=== PATIENT | male | born 1995 ===

== ENCOUNTER 2022-11-07 23:01 | Emergency (ER) | payer OTHER ==
[~2022-11-07] VITALS: Ht 167.6 cm; Wt 68.6 kg
[2022-11-07 23:28] VITALS: BP 131/79
== END 2022-11-08 01:02 | disposition left against medical advice (07) ==
LOC: ER 23:02
DX: F41.9 Anxiety disorder, unspecified (principal); Z53.21 Procedure and treatment not carried out due to patient leaving prior to being seen by health care provider
CPT/HCPCS: 99281